=== PATIENT | female | born 1940 | race Two or more races ===

== ENCOUNTER 2020-05-14 14:40 | Inpatient (IN) | payer MEDICARE, OTHER ==
[~2020-05-14] VITALS: Ht 154.9 cm; Wt 76.0 kg
[2020-05-14 15:26] LABS: Basophils # (auto) 0 10 ^3/uL (0-0.2); Basophils % (auto) 0.6 % (0.0-2.0); Eosinophils # (auto) 0 10 ^3/uL (0-0.8); Eosinophils % (auto) 0.7 % (0.0-7.0); Hematocrit 37.8 % (36.0-46.0); Hemoglobin 12.3 g/dL (12.2-16.2); Lymphocytes # (auto) 1.7 10 ^3/uL (0.4-5.4); Lymphocytes % (auto) 25.4 % (10.0-50.0); Mean Corpuscular Hemoglobin 29.1 pg (28.0-32.0); Mean Corpuscular Hgb Conc. 32.5 g/dL (32.0-36.0); Mean Corpuscular Volume 89.5 fL (80.0-100.0); Monocytes # (auto) 0.4 10 ^3/uL (0-1.3); Neutrophils # (auto) 4.5 10 ^3/uL (1.6-8.6); Neutrophils % (auto) 67.3 % (37.0-80.0); Nucleated Red Blood Cells % 0.1 %; Platelet Count (auto) 212 10^3/uL (140-450); Red Blood Cells 4.22 10^6/uL (4.0-5.20); Red Cell Distribution Width 13.9 % (11.8-14.3); White Blood Cell 6.7 10^3/uL (4.4-10.8)
[2020-05-14 16:15] LABS: Alanine Aminotransferase 12 U/L (13-56); Albumin 3.7 g/dL (3.4-5.0); Anion Gap 5 (5-15); Aspartate Aminotransferase 15 U/L (15-37); BUN/Creatinine Ratio 16.9; Blood Urea Nitrogen 14 mg/dL (7-18); Calcium 8.8 mg/dL (8.5-10.1); Carbon Dioxide 33 mmol/L (21-32); Chloride 102 mmol/L (98-107); GFR African American 86 mL/min; GFR Non-African American 71 mL/min; Glucose 132 mg/dL (74-106); Magnesium 2.2 mg/dL (1.6-2.6); Potassium 3.8 mmol/L (3.5-5.1); Sodium 140 mmol/L (136-145)
[2020-05-14 16:20] LABS: Alkaline Phosphatase 59 U/L (45-117); Bilirubin, Total 0.4 mg/dL (0.2-1.0); Total Protein 7.4 g/dL (6.4-8.2)
[2020-05-14] MEDS ORDERED: ASPirin-EC 81 mg tab PO ONE (18:30)
[2020-05-14] MEDS ORDERED: ONDANSETRON HCL 4 MG/2 ML VIAL IV ONE (18:30)
[2020-05-14] MEDS ORDERED: MORPHINE SULF INJ 2 MG/ML SYRINGE 1ML IV ONE (18:30)
[2020-05-14 21:00] LABS: INR 1.1 (0.9-1.15); Partial Thromboplastin Time 26.9 sec (23.0-31.2)
[2020-05-14] MEDS ORDERED: IOHEXOL 350 MG/ML 100ML IJ ONE (21:27)
[2020-05-15] MEDS ORDERED: TEMAZEPAM 15 MG CAP PO PRN (02:30)
[2020-05-15] MEDS ORDERED: ONDANSETRON HCL 4 MG/2 ML VIAL IV PRN (02:30)
[2020-05-15] MEDS ORDERED: ACETAMINOPHEN 325 MG TAB PO PRN (02:30)
[2020-05-15] MEDS ORDERED: cloNIDine HCL 0.1 MG TAB PO PRN (02:30)
[2020-05-15] MEDS ORDERED: NITROGLYCERIN 0.4 MG SL TAB SL PRN (02:30)
[2020-05-15] MEDS ORDERED: MORPHINE SULF INJ 2 MG/ML SYRINGE 1ML IV PRN (02:30)
[2020-05-15 05:40] VITALS: BP 174/91
--- NOTE | 2020-05-15 06:05 | NUR ---
Telemetry admit from ER KRYSTEN JONES admitted to Telemetry unit after SBAR received. Patient oriented to HANSA YUAN, RN primary RN, unit, room, bed, and unit policies regarding patient care and visiting hours. Patient now on continuous telemetry monitoring, tele box # [id number] and telemetry reading on arrival to unit is SR-[id number]. Patient placed on bedside 3L oxygen, weighed by bedscale and encouraged to call if they need something. All questions and concerns addressed, patient verbalized understanding.
--- NOTE | 2020-05-15 07:40 | NUR ---
Opening Shift Note Assumed care of patient, awake and alert and [place] speaking. Completed assessment with MAC Cuellar at beside. Respirations are even and non labored on 2LNC. No S/S of distress/SOB or pain. Bed is in the lowest and locked position with side rails up x 2 and call light within reach. Instructed on POC and to call for assist PRN, will continue to monitor for changes Q1hr and PRN.
--- NOTE | 2020-05-15 08:03 | NUR ---
Medication rec completed Information provided by daughter Mala.
[2020-05-15] MEDS ORDERED: CARV12.544 PO (08:13)
[2020-05-15] MEDS ORDERED: ASPI-543 PO (08:13)
[2020-05-15] MEDS ORDERED: DOCU-94 PO (08:13)
[2020-05-15] MEDS ORDERED: CHOL20007 PO (08:13)
[2020-05-15] MEDS ORDERED: METO10TA3 PO (08:13)
[2020-05-15] MEDS ORDERED: FURO40TA4 PO (08:13)
[2020-05-15] MEDS ORDERED: LOSA-39 PO (08:13)
[2020-05-15] MEDS ORDERED: CITA10TA70 PO (08:13)
[2020-05-15] MEDS ORDERED: HYDR10TA26 PO (08:13)
[2020-05-15] MEDS ORDERED: ALEN1TAB32 PO (08:13)
[2020-05-15] MEDS ORDERED: ADENOSINE 62 MG in GIVE UN-DILUTED 0 ML IV STA (08:25)
[2020-05-15 09:19] VITALS: BP 133/66
[2020-05-15] MEDS ORDERED: ENOXAPARIN SOD 40 MG/0.4 ML SYRINGE SC SCH (10:00)
[2020-05-15] MEDS: ENOXAPARIN SOD 40 MG/0.4 ML SYRINGE SC SCH (10:00)
[2020-05-15] MEDS: FUROSEMIDE 40 MG TAB PO SCH (10:00)
[2020-05-15] MEDS: FAMOTIDINE 20 MG TAB PO SCH (10:00)
[2020-05-15] MEDS: LOSARTAN POTASSIUM 50 MG TAB PO SCH (10:00)
[2020-05-15] MEDS: ASPirin 81 mg TAB PO SCH (10:00)
[2020-05-15] MEDS ORDERED: INFLUENZA QUAD 2020-2021 0.5 ML SYRG IM ONE (10:00)
[2020-05-15] MEDS: CARVEDILOL 12.5 MG TAB PO ONE ×2 (10:15→17:59)
[2020-05-15 10:31] VITALS: BP 169/65
[2020-05-15 12:38] VITALS: BP 152/72
[2020-05-15 16:43] VITALS: BP 139/63
--- NOTE | 2020-05-15 19:35 | NUR ---
Opening Shift Note Assumed care of patient, awake and alert. No S/S of distress/SOB. Pt complaining of pain when taking deep breathes, will medicate with prescribed Tylenol. All needs addressed at this time. Safety measures in place, bed in lowest locked position, bed rails raised x2, call light within reach. Instructed on POC and to call for assist PRN, will continue to monitor for changes Q1hr and PRN.
[2020-05-15] MEDS: CARVEDILOL 12.5 MG TAB PO SCH (21:47)
[2020-05-15 22:00] VITALS: BP 136/59
[2020-05-15] MEDS ORDERED: ATORVASTATIN 20 MG TAB PO SCH (22:00)
[2020-05-16 05:00] VITALS: BP 129/54
[2020-05-16 05:41] LABS: Basophils # (auto) 0 10 ^3/uL (0-0.2); Basophils % (auto) 0.3 % (0.0-2.0); Eosinophils # (auto) 0.1 10 ^3/uL (0-0.8); Eosinophils % (auto) 1.5 % (0.0-7.0); Hematocrit 37.2 % (36.0-46.0); Hemoglobin 12.5 g/dL (12.2-16.2); Lymphocytes # (auto) 1.7 10 ^3/uL (0.4-5.4); Lymphocytes % (auto) 27.2 % (10.0-50.0); Mean Corpuscular Hemoglobin 30.1 pg (28.0-32.0); Mean Corpuscular Hgb Conc. 33.6 g/dL (32.0-36.0); Mean Corpuscular Volume 89.7 fL (80.0-100.0); Monocytes # (auto) 0.6 10 ^3/uL (0-1.3); Monocytes % (auto) 9.2 % (0.0-12.0); Neutrophils # (auto) 3.7 10 ^3/uL (1.6-8.6); Neutrophils % (auto) 61.8 % (37.0-80.0); Platelet Count (auto) 177 10^3/uL (140-450); Red Blood Cells 4.14 10^6/uL (4.0-5.20); Red Cell Distribution Width 13.9 % (11.8-14.3); White Blood Cell 6.1 10^3/uL (4.4-10.8)
[2020-05-16 05:58] LABS: Potassium 3.4 mmol/L (3.5-5.1)
[2020-05-16 06:04] LABS: BUN/Creatinine Ratio 16.2
--- NOTE | 2020-05-16 07:50 | NUR ---
RECEIVED PATIENT ALERT AND ORIENTED X4, HONDURAN SPEAKING ONLY, NOT IN DISTRESS, CLEAR LS IN BILATERAL LUNG LOBES, RR=18 SAT=97%, DEEP BREATHING AND COUGHING ENCOURAGED, VERBALIZED AND DEMONSTRATED UNDERSTANDING, SR R=78 ON TELE MONITOR, DENIED CP AND SOB AT THIS MOMENT, ABDOMEN SOFT WITH ACTIVE BS, LAST BM=05/14/20 REPORTED, SKIN INTACT WARM TO TOUCH, RADIAL AND PEDAL PULSES PALPABLE, CAP REFILL <3 SECONDS, DENIED PAIN, RESTING ON BED, HEAD OF BED ELEVATED, BED ON LOW POSITION, RAILS UP X2, CALL LIGHT ON REACH, WILL CONTINUE MONITORING.
[2020-05-16 09:34] VITALS: BP 140/60
[2020-05-16] MEDS: ENOXAPARIN SOD 40 MG/0.4 ML SYRINGE SC SCH (10:00)
[2020-05-16] MEDS ORDERED: POTASSIUM CHL 20 Meq TABLET PO ONE (10:00)
[2020-05-16] MEDS: ASPirin 81 mg TAB PO SCH (10:05)
[2020-05-16] MEDS: LOSARTAN POTASSIUM 50 MG TAB PO SCH (10:06)
[2020-05-16] MEDS: CARVEDILOL 12.5 MG TAB PO SCH (10:06)
[2020-05-16] MEDS: FUROSEMIDE 40 MG TAB PO SCH (10:07)
[2020-05-16] MEDS: FAMOTIDINE 20 MG TAB PO SCH (10:07)
--- NOTE | 2020-05-16 14:35 | NUR ---
RESTING ON BED, NOT IN DISTRESS, DENIED PAIN, PENDING D/C HOME TODAY, DAUGHTER ESTRELLITA WAS CONTACTED ON [phone] TO BE NOTIFIED AND TRANSPORTATION, DAUGHTER WILL ARCHITECTURE ANALYST THE PATIENT AT 1600 REPORTED, WILL CONTINUE MONITORING.
--- NOTE | 2020-05-16 16:00 | NUR ---
DISCHARGE INSTRUCTIONS AND EDUCATION PROVIDED, VERBALIZED UNDERSTANDING, PCP FOLLOW UP INFORMATION PROVIDED, D/C TELE AND IV SITES, TOLERATED WELL,VS T=97.7 RR=18 SAT=95% KK=158/65 P=68, D/C ON WC ACCOMPANIED BY DAUGHTER, TOOK ALL BELONGINGS AND LEFT NOTHING BEHIND.
== END 2020-05-16 16:00 | disposition home or self-care (01) | DRG 293 ==
LOC: ER 14:43 → TELE 14:44 → TELE-WESTW 05-15 05:36
PROVIDERS: ADMIT Nurse Practitioner; ATTEND Family Medicine
DX: I11.0 Hypertensive heart disease with heart failure (principal); R07.89 Other chest pain; I50.23 Acute on chronic systolic (congestive) heart failure; I20.0 Unstable angina; E78.5 Hyperlipidemia, unspecified; E66.9 Obesity, unspecified; Z90.49 Acquired absence of other specified parts of digestive tract; Z82.49 Family history of ischemic heart disease and other diseases of the circulatory system; E87.6 Hypokalemia; Z68.31 Body mass index [BMI] 31.0-31.9, adult
CPT/HCPCS: 36415; 71045; 71275; 78452; 80048; 80053; 83735; 83880; 84443; 84484; 85025; 85379; 85610; 85730; 93017; 93306; G0378; J0153; J2405